=== PATIENT | male | born 1985 | race Hispanic/Latino ===

== ENCOUNTER 2020-09-07 10:01 | Emergency (ER) | payer BC ==
--- NOTE | 2020-09-07 10:44 | RAD ---
EXAM DESCRIPTION: Shoulder,Left 2 or More Views CLINICAL HISTORY: pain 2 months COMPARISON: None. TECHNIQUE: 2 views left FINDINGS: I see no bone joint or soft tissue abnormality. IMPRESSION: Normal left shoulder. Electronically signed by: Negrito Simon MD 09/07/2020 10:43 AM [facility]
--- NOTE | 2020-09-07 11:00 | ED.PDOC ---
History of Present Illness - General Chief Complaint: Upper Extremity Injury Time Seen by Provider: 09/07/20 10:18 Source: patient Exam Limitations: no limitations - History of Present Illness Initial Comments: The patient is a 35-year-old male presented emergency room secondary to left shoulder pain for last 2-1/2 months. No inciting trauma that is known. He has had previous shoulder injuries in the past. He does have some pain over the left AC joint. Pain otherwise appears to localize over the supraspinatus muscle distally. No evidence of significant capsulitis on exam. Range of motion is preserved. Strength is preserved. He is neurovascularly preserved. No visible or palpable deformities aside from some muscle spasm. No rhomboid tenderness. Timing/Duration: other Severity: moderate Improving Factors: immobilization Worsening Factors: movement Associated Symptoms: denies symptoms Allergies/Adverse Reactions: Allergies NO KNOWN ALLERGY Allergy (Verified 11/02/15 00:35) Home Medications: Ambulatory Orders predniSONE [Prednisone] 20 mg PO DAILY #14 tab 09/07/20 Review of Systems - Review of Systems Constitutional: States: no symptoms reported EENTM: States: no symptoms reported Respiratory: States: no symptoms reported Cardiology: States: no symptoms reported Gastrointestinal/Abdominal: States: no symptoms reported Genitourinary: States: no symptoms reported Musculoskeletal: States: see HPI Skin: States: no symptoms reported Neurological: States: no symptoms reported Endocrine: States: no symptoms reported All other Systems: No Change from Baseline Past Medical History (General) - Patient Medical History Hx Seizures: No Hx Stroke: No Hx Dementia: No Hx Asthma: No Hx of COPD: No Hx Cardiac Disorders: No Hx Congestive Heart Failure: No Hx Pacemaker: No Hx Hypertension: No Hx Thyroid Disease: No Hx Diabetes: No Hx Gastroesophageal Reflux: No Hx Renal Disease: No Hx Cancer: No Hx of HIV: No Hx Hepatitis C: No Hx MRSA: Yes - Head Abscess 2015 MRSA Source:: Wound - Vaccination History Hx Tetanus, Diphtheria Vaccination: Yes Hx Influenza Vaccination: No Hx Pneumococcal Vaccination: No - Social History Hx Tobacco Use: Yes Hx Chewing Tobacco Use: No Hx Alcohol Use: No Hx Substance Use: No Hx Substance Use Treatment: No Hx Depression: No Hx Physical Abuse: No Hx Emotional Abuse: No Hx Suspected Abuse: No - Female History Patient : No Family Medical History - Family History Mother Family History: No Known Living Status: Still Living Physical Exam - Physical Exam General Appearance: Alert, Comfortable, No apparent distress Eye Exam: bilateral normal Ears, Nose, Throat: hearing grossly normal Neck: full range of motion, supple Respiratory: no respiratory distress, no accessory muscle use Cardiovascular/Chest: normal peripheral pulses, regular rate, rhythm, no edema Peripheral Pulses: radial,right: 2+, radial,left: 2+ Rectal Exam: deferred Extremity: normal range of motion, normal inspection, no pedal edema, no calf tenderness, normal capillary refill, other - See history of present illness. 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 Most likely this is involving the left supraspinatus muscle. Additionally he does have some AC joint bursitis. He does need to do range of motion exercises. Topical heat in the form of a heat pad or icy hot or Biofreeze may help. Most importantly are the stretching and range of motion motion exercises. The patient is going to be placed on 2 weeks of oral steroids to help reduce inflammation. He can also take [id number] Aleve or ibuprofen. He does need to follow back up with his primary care doctor in a couple of weeks. He should try to avoid sleeping on the left side as well for the AC joint bursitis. ER warnings are given. sandeep vital [id number] Departure - Departure Clinical Impression: Acromioclavicular joint pain Qualifiers: Laterality: left Qualified Code(s): M25.512 - Pain in left shoulder Rotator cuff strain Qualifiers: Encounter type: initial encounter Laterality: left Qualified Code(s): S46.012A - Strain of muscle(s) and tendon(s) of the rotator cuff of left shoulder, initial encounter Disposition: Discharge to Home or Self Care Departure Forms: ED Discharge - Pt. Copy, Patient Portal Self Enrollment Diet: regular diet Activity: increase activity as tolerated Prescriptions: predniSONE [Prednisone] 20 mg PO DAILY #14 tab Home Medications: Ambulatory Orders predniSONE [Prednisone] 20 mg PO DAILY #14 tab 09/07/20 Additional Instructions: The patient is a 35-year-old male presented emergency room secondary to what appears to be a left sided rotator cuff strain. Most likely this is involving the left supraspinatus muscle. Additionally he does have some AC joint bursitis. He does need to do range of motion exercises. Topical heat in the form of a heat pad or icy hot or Biofreeze may help. Most importantly are the stretching and range of motion motion exercises. The patient is going to be placed on 2 weeks of oral steroids to help reduce inflammation. He can also take [id number] Aleve or ibuprofen. He does need to follow back up with his primary care doctor in a couple of weeks. He should try to avoid sleeping on the left side as well for the AC joint bursitis. ER warnings are given.
[2020-09-07 11:12] VITALS: BP 136/84; O2SAT 98
[2020-09-07 19:08] VITALS: TEMP 98
== END 2020-09-07 11:11 | disposition home or self-care (01) ==
LOC: ER 10:01
DX: S46.012A Strain of muscle(s) and tendon(s) of the rotator cuff of left shoulder, initial encounter (principal); M75.52 Bursitis of left shoulder; Z87.828 Personal history of other (healed) physical injury and trauma; X58.XXXA Exposure to other specified factors, initial encounter; Y92.9 Unspecified place or not applicable